=== PATIENT | male | born 1950 | race African-American/Black ===

== ENCOUNTER 2022-08-02 13:18 | Emergency (ER) | payer MEDICARE, OTHER ==
[~2022-08-02] VITALS: Ht 180.3 cm; Wt 89.0 kg
[2022-08-02] MEDS ORDERED: ACETAMINOPHEN 325MG TABLET PO ONE (13:45)
[2022-08-02] MEDS ORDERED: IBUPROFEN 400MG TABLET PO ONE (13:45)
[2022-08-02] MEDS ORDERED: IBUPROFEN 400MG TABLET PO NR (16:15)
[2022-08-02] MEDS ORDERED: ACETAMINOPHEN 325MG TABLET PO NR (16:30)
[2022-08-02] MEDS ORDERED: KETOROLAC 60MG/2ML VIAL IM ONE (17:45)
[2022-08-02] MEDS ORDERED: IBUP-2028 MT (19:00)
[2022-08-02 20:33] VITALS: BP 138/81
== END 2022-08-02 20:35 | disposition home or self-care (01) ==
LOC: ER 13:18
DX: R07.9 Chest pain, unspecified (principal); M54.9 Dorsalgia, unspecified; M25.512 Pain in left shoulder; R51.9 Headache, unspecified; I10 Essential (primary) hypertension; V49.9XXA Car occupant (driver) (passenger) injured in unspecified traffic accident, initial encounter; Y93.89 Activity, other specified; Y92.89 Other specified places as the place of occurrence of the external cause; Y99.8 Other external cause status
CPT/HCPCS: 70450; 71045; 72170; 73030; 76705; 93005; 96372; 99285; J1885